=== PATIENT | male | born 1960 | race Caucasian/White ===

== ENCOUNTER 2021-09-03 12:50 | Observation (INO) | payer OTHER ==
[2021-09-03 14:00] LABS: Basophils % (A) 0 %; Eosinophils # (A) 0.2 k/uL (0-0.7); Eosinophils % (A) 2 %; HCT 45.3 % (39.0-53.0); HGB 14.9 gm/dL (13.0-17.5); Lymphocytes # (A) 2.2 k/uL (1.0-4.8); Lymphocytes % (A) 22 %; MCH 29.3 pg (25.0-35.0); MCHC 32.8 g/dL (31.0-37.0); MCV 89.5 fL (80.0-100.0); Monocytes # (A) 0.6 k/uL (0-1.0); Monocytes % (A) 6 %; Neutrophils # (A) 6.7 k/uL (1.3-7.7); Neutrophils % (A) 67 %; Platelet Count 239 k/uL (150-450); RBC 5.07 m/uL (4.30-5.90); RDW 14.9 % (11.5-15.5)
[2021-09-03 14:20] LABS: INR 0.9 (<1.2); Partial Thromboplastin Time 22.7 sec (22.0-30.0); Prothrombin Time 9.9 sec (9.0-12.0)
--- NOTE | 2021-09-03 14:21 | ED ---
GI Bleed HPI - General Chief complaint: GI Bleed Stated complaint: BLOOD IN STOOL Time Seen by Provider: 09/03/21 13:00 Source: patient Mode of arrival: ambulatory Limitations: no limitations - History of Present Illness Initial comments: 61-year-old male with past medical history of diabetes, hypertension presents to the emergency department with blood per rectum. States that it's been intermittently going on for 2 weeks. States that he fills the toilet bowl and visualizes it when he wipes. States that it is bright red in coloration. He had a colonoscopy in July which showed polyps however denies history of GI bleeding. He was started on naproxen for generalized aches and pains in july. He denies any abdominal pain or rectal pain. No history of colon cancer or inflammatory bowel disease. No other alleviating, precipitating or modifying factors - Related Data Home Medications Medication Instructions Recorded Confirmed amLODIPine BESYLATE/BENAZEPRIL 1 cap PO DAILY@39909/03/14 09/03/21 [Amlodipine-Benazepril 5-20 mg] Atorvastatin [Lipitor] 80 mg PO DAILY@39909/03/21 09/03/21 Cholecalciferol [Vitamin D3 (25 25 mcg PO DAILY@39909/03/21 09/03/21 Mcg = 1000 Iu)] Cyclobenzaprine [Flexeril] 10 mg PO BID PRN 09/03/21 09/03/21 Furosemide [Lasix] 40 mg PO DAILY@0800 09/03/21 09/03/21 Metoprolol Succinate [Toprol XL] 25 mg PO DAILY@39909/03/21 09/03/21 Naproxen [Naprosyn] 500 mg PO BID PRN 09/03/21 09/03/21 Potassium Chloride ER [K-Dur 10] 10 meq PO DAILY@39909/03/21 09/03/21 metFORMIN HCL ER [Glucophage XR] 500 mg PO DAILY@39909/03/21 09/03/21 Allergies Allergy/AdvReac Type Severity Reaction Status Date / Time iodine Allergy Rash/Hives Verified 09/03/21 14:20 Review of Systems ROS Statement: Those systems with pertinent positive or pertinent negative responses have been documented in the HPI. ROS Other: All systems not noted in ROS Statement are negative. Past Medical History Past Medical History: Hypertension Additional Past Medical History / Comment(s): kidney stones History of Any Multi-Drug Resistant Organisms: None Reported Additional Past Surgical History / Comment(s): colonoscopy Past Psychological History: No Psychological Hx Reported Smoking Status: Never smoker Past Alcohol Use History: None Reported Past Drug Use History: None Reported General Exam Limitations: no limitations Course Vital Signs 09/03/21 09/03/21 09/03/21 12:57 16:39 19:20 Temperature 97.7 F 97.8 F 98.2 F Pulse Rate 89 91 100 Respiratory 16 18 18 Rate Blood Pressure 173/97 156/97 169/104 O2 Sat by Pulse 97 97 98 Oximetry 09/03/21 21:00 Temperature Pulse Rate 95 Respiratory 18 Rate Blood Pressure 160/99 O2 Sat by Pulse 95 Oximetry Medical Decision Making - Medical Decision Making Upon arrival patient is placed in room 18. A thorough history and physical exam was performed. IV access established laboratory studies are conducted. Original hemoglobin is 14.9. Kidney function normal. Occult is positive. Patient does have melenic stools on rectal exam without identifiable mass. I did recommend admission in order to trend his hemoglobin. Patient agreed to this. We will hold his Naprosyn. Patient admitted to Dr. Mason. Dr. Benjamin will be placed on consult. Patient awaiting a bed on the floor in stable condition - Lab Data Result diagrams: 09/03/21 16:48 09/03/21 13:35 Lab Results 09/03/21 09/03/21 09/03/21 Range/Units 13:35 13:35 13:35 WBC 10.0 (3.8-10.6) k/uL RBC 5.07 (4.30-5.90) m/uL Hgb 14.9 (13.0-17.5) gm/dL Hct 45.3 (39.0-53.0) % MCV 89.5 (80.0-100.0) fL MCH 29.3 (25.0-35.0) pg MCHC 32.8 (31.0-37.0) g/dL RDW 14.9 (11.5-15.5) % Plt Count 239 (150-450) k/uL MPV 7.0 Neutrophils % 67 % Lymphocytes % 22 % Monocytes % 6 % Eosinophils % 2 % Basophils % 0 % Neutrophils # 6.7 (1.3-7.7) k/uL Lymphocytes # 2.2 (1.0-4.8) k/uL Monocytes # 0.6 (0-1.0) k/uL Eosinophils # 0.2 (0-0.7) k/uL Basophils # 0.0 (0-0.2) k/uL PT 9.9 (9.0-12.0) sec INR 0.9 (<1.2) APTT 22.7 (22.0-30.0) sec Sodium 138 (137-145) mmol/L Potassium 4.2 (3.5-5.1) mmol/L Chloride 107 (98-107) mmol/L Carbon Dioxide 25 (22-30) mmol/L Anion Gap 6 mmol/L BUN 17 (9-20) mg/dL Creatinine 0.90 (0.66-1.25) mg/dL Est GFR (CKD-EPI)AfAm >90 (>60 ml/min/1.73 sqM) Est GFR (CKD-EPI)NonAf >90 (>60 ml/min/1.73 sqM) Glucose 154 H (74-99) mg/dL Plasma Lactic Acid Zach (0.7-2.0) mmol/L Calcium 9.3 (8.4-10.2) mg/dL Magnesium 1.9 (1.6-2.3) mg/dL Total Bilirubin 0.6 (0.2-1.3) mg/dL AST 30 (17-59) U/L ALT 34 (4-49) U/L Alkaline Phosphatase 131 H (38-126) U/L Troponin I (0.000-0.034) ng/mL Total Protein 7.9 (6.3-8.2) g/dL Albumin 4.3 (3.5-5.0) g/dL Lipase 176 (23-300) U/L Stool Occult Blood (Negative) Blood Type Blood Type Recheck Bld Type Recheck Status Antibody Screen Spec Expiration Date 09/03/21 09/03/21 09/03/21 Range/Units 13:35 13:35 13:35 WBC (3.8-10.6) k/uL RBC (4.30-5.90) m/uL Hgb (13.0-17.5) gm/dL Hct (39.0-53.0) % MCV (80.0-100.0) fL MCH (25.0-35.0) pg MCHC (31.0-37.0) g/dL RDW (11.5-15.5) % Plt Count (150-450) k/uL MPV Neutrophils % % Lymphocytes % % Monocytes % % Eosinophils % % Basophils % % Neutrophils # (1.3-7.7) k/uL Lymphocytes # (1.0-4.8) k/uL Monocytes # (0-1.0) k/uL Eosinophils # (0-0.7) k/uL Basophils # (0-0.2) k/uL PT (9.0-12.0) sec INR (<1.2) APTT (22.0-30.0) sec Sodium (137-145) mmol/L Potassium (3.5-5.1) mmol/L Chloride (98-107) mmol/L Carbon Dioxide (22-30) mmol/L Anion Gap mmol/L BUN (9-20) mg/dL Creatinine (0.66-1.25) mg/dL Est GFR (CKD-EPI)AfAm (>60 ml/min/1.73 sqM) Est GFR (CKD-EPI)NonAf (>60 ml/min/1.73 sqM) Glucose (74-99) mg/dL Plasma Lactic Acid Zach 1.9 (0.7-2.0) mmol/L Calcium (8.4-10.2) mg/dL Magnesium (1.6-2.3) mg/dL Total Bilirubin (0.2-1.3) mg/dL AST (17-59) U/L ALT (4-49) U/L Alkaline Phosphatase (38-126) U/L Troponin I <0.012 (0.000-0.034) ng/mL Total Protein (6.3-8.2) g/dL Albumin (3.5-5.0) g/dL Lipase (23-300) U/L Stool Occult Blood Positive (Negative) Blood Type Blood Type Recheck Bld Type Recheck Status Antibody Screen Spec Expiration Date 09/03/21 Range/Units 13:35 WBC (3.8-10.6) k/uL RBC (4.30-5.90) m/uL Hgb (13.0-17.5) gm/dL Hct (39.0-53.0) % MCV (80.0-100.0) fL MCH (25.0-35.0) pg MCHC (31.0-37.0) g/dL RDW (11.5-15.5) % Plt Count (150-450) k/uL MPV Neutrophils % % Lymphocytes % % Monocytes % % Eosinophils % % Basophils % % Neutrophils # (1.3-7.7) k/uL Lymphocytes # (1.0-4.8) k/uL Monocytes # (0-1.0) k/uL Eosinophils # (0-0.7) k/uL Basophils # (0-0.2) k/uL PT (9.0-12.0) sec INR (<1.2) APTT (22.0-30.0) sec Sodium (137-145) mmol/L Potassium (3.5-5.1) mmol/L Chloride (98-107) mmol/L Carbon Dioxide (22-30) mmol/L Anion Gap mmol/L BUN (9-20) mg/dL Creatinine (0.66-1.25) mg/dL Est GFR (CKD-EPI)AfAm (>60 ml/min/1.73 sqM) Est GFR (CKD-EPI)NonAf (>60 ml/min/1.73 sqM) Glucose (74-99) mg/dL Plasma Lactic Acid Zach (0.7-2.0) mmol/L Calcium (8.4-10.2) mg/dL Magnesium (1.6-2.3) mg/dL Total Bilirubin (0.2-1.3) mg/dL AST (17-59) U/L ALT (4-49) U/L Alkaline Phosphatase (38-126) U/L Troponin I (0.000-0.034) ng/mL Total Protein (6.3-8.2) g/dL Albumin (3.5-5.0) g/dL Lipase (23-300) U/L Stool Occult Blood (Negative) Blood Type O Positive Blood Type Recheck No Previous Record Bld Type Recheck Status CABO Indicated Antibody Screen NEGATIVE Spec Expiration Date 09/06/20212334 Disposition Clinical Impression: Melena Disposition: ADMITTED IP TO THIS HOSP Condition: Stable Is patient prescribed a controlled substance at d/c from ED?: No Decision to Admit Reason: Admit from EC Decision Date: 09/03/21 Decision Time: 15:22
[2021-09-03 14:26] LABS: ALT 34 U/L (4-49); AST 30 U/L (17-59); African American GFR (CKD) >90 (>60 ml/min/1.73 sqM); Albumin 4.3 g/dL (3.5-5.0); Alkaline Phosphatase 131 U/L (38-126); Anion Gap 6 mmol/L; Blood Urea Nitrogen 17 mg/dL (9-20); Calcium 9.3 mg/dL (8.4-10.2); Carbon Dioxide 25 mmol/L (22-30); Chloride 107 mmol/L (98-107); Glucose 154 mg/dL (74-99); Lipase 176 U/L (23-300); Magnesium 1.9 mg/dL (1.6-2.3); Non-African American GFR(CKD) >90 (>60 ml/min/1.73 sqM); Potassium 4.2 mmol/L (3.5-5.1); Sodium 138 mmol/L (137-145); Total Bilirubin 0.6 mg/dL (0.2-1.3); Total Protein 7.9 g/dL (6.3-8.2)
[2021-09-03] MEDS ORDERED: NALOXONE 0.4 MG/ML 1 ML VIAL IV PRN (15:22)
[2021-09-03] MEDS: SODIUM CHLORIDE 0.9% 1,000 ML IV SCH (16:45)
[2021-09-03 17:13] LABS: HCT 41.9 % (39.0-53.0); HGB 13.9 gm/dL (13.0-17.5); MCH 29.4 pg (25.0-35.0); MCHC 33.1 g/dL (31.0-37.0); MCV 88.9 fL (80.0-100.0); Mean Platelet Volume 7.3; Platelet Count 212 k/uL (150-450); RBC 4.72 m/uL (4.30-5.90); RDW 14.6 % (11.5-15.5); WBC 10.4 k/uL (3.8-10.6)
[2021-09-03] MEDS ORDERED: PANTOPRAZOLE 40 MG/10 ML VIAL IVP STA (18:12)
[2021-09-03] MEDS ORDERED: CYCLOBENZAPRINE 10 MG TAB PO PRN (18:12)
--- NOTE | 2021-09-03 21:57 | P.HPIM ---
History of Present Illness H&P Date: 09/03/21 Chief Complaint: Dark-colored stools Patient is a 61-year-old male with a known history of hypertension and heart murmur, supposed to get 2D echocardiogram at [facility] presents to ER with complaints of dark-colored stools for the past 2 weeks. Patient states sometimes it is bright red in color. Patient did have colonoscopy at the [facility] which showed polyps but no active bleeding. Denies any history of prior GI bleeding. Patient has been taking Naprosyn on and off since July for generalized body aches and pains. Otherwise patient denies any complaints of abdominal pain. Denies any dysuria or hematuria. No cough or sputum production. No fever no chills. Patient is also having increasing leg swelling recently and was started on Lasix by his physician at [facility].. Denied any complaints of palpitations. No chest pain or shortness of breath. Laboratory data showed WBC 10.0 hemoglobin 14.9 and platelets 239 Sodium 138 potassium 4.2 chloride 107 BUN 17 and creatinine 0.90 Blood sugar is 154 AST 30 ALT 34 alk phos 131 troponin 0 0.012 and FOBT positi ve. Coronavirus PCR not detected. Review of Systems Constitutional: Patient denies any fever or chills . Does have generalized weakness or weight gain. Abdomen: Patient denied nausea vomiting and diarrhea and abdominal pain. Patient does have dark stools. Cardiovascular: Patient denies any chest pain or short of breath no palpitations. Leg swelling. Respiratory: patient denied any cough or sputum production. No shortness of breath Neurologic: Patient denied any numbness or tingling headache. Musculoskeletal: Patient denies any complaints of joint swelling or deformity. Skin: Negative Psychiatric: Negative Endocrine: No heat or cold intolerance. No recent weight gain. Genitourinary: No dysuria or hematuria. All other 14 point ROS negative except the above Past Medical History Past Medical History: Hypertension Additional Past Medical History / Comment(s): kidney stones History of Any Multi-Drug Resistant Organisms: None Reported Additional Past Surgical History / Comment(s): colonoscopy Past Psychological History: No Psychological Hx Reported Smoking Status: Never smoker Past Alcohol Use History: None Reported Past Drug Use History: None Reported Medications and Allergies Home Medications Medication Instructions Recorded Confirmed Type amLODIPine BESYLATE/BENAZEPRIL 1 cap PO DAILY@0400 09/03/14 09/03/21 History [Amlodipine-Benazepril 5-20 mg] Atorvastatin [Lipitor] 80 mg PO DAILY@0 09/03/21 09/03/21 History Cholecalciferol [Vitamin D3 (25 25 mcg PO DAILY@39909/03/21 09/03/21 History Mcg = 1000 Iu)] Cyclobenzaprine [Flexeril] 10 mg PO BID PRN 09/03/21 09/03/21 History Furosemide [Lasix] 40 mg PO DAILY@0800 09/03/21 09/03/21 History Metoprolol Succinate [Toprol XL] 25 mg PO DAILY@39909/03/21 09/03/21 History Naproxen [Naprosyn] 500 mg PO BID PRN 09/03/21 09/03/21 History Potassium Chloride ER [K-Dur 10] 10 meq PO DAILY@39909/03/21 09/03/21 History metFORMIN HCL ER [Glucophage XR] 500 mg PO DAILY@39909/03/21 09/03/21 History Allergies Allergy/AdvReac Type Severity Reaction Status Date / Time iodine Allergy Rash/Hives Verified 09/03/21 14:20 Physical Exam Vitals: Vital Signs Temp Pulse Resp BP Pulse Ox 09/03/21 21:00 95 18 160/99 95 09/03/21 19:20 98.2 F 100 18 169/104 98 09/03/21 16:39 97.8 F 91 18 156/97 97 09/03/21 12:57 97.7 F 89 16 173/97 97 Intake and Output 09/03/21 09/03/21 09/03/21 06:59 14:59 22:59 Other: Weight 137.438 kg PHYSICAL EXAMINATION: Patient is lying in the bed comfortably, no acute distress, awake alert and oriented.. Morbidly obese. HEENT: Normocephalic. Neck is supple. Pupils reactive. Nostrils clear. Oral cavity is moist. Neck reveals no JVD, carotid bruits, or thyromegaly. CHEST EXAMINATION: Trachea is central. Symmetrical expansion. Bibasilar diminished sounds. No wheezing or rhonchi. No crackles noted.. CARDIAC: Normal S1, S2 with no gallops. No murmurs ABDOMEN: Soft. bowel sounds normal. No organomegaly. No abdominal bruits. Extremities: 2+ pedal bilateral edema. No clubbing or cyanosis Neurologically awake, alert, oriented x3 with well-coordinated movements. No focal deficits noted Skin: No rash or skin lesions. Psychiatric: Cooperative. Nonsuicidal Musculoskeletal: No joint swelling or deformity. Normal range of motion. Results CBC & Chem 7: 09/03/21 16:48 09/03/21 13:35 Labs: Abnormal Lab Results - Last 24 Hours (Table) 09/03/21 Range/Units 13:35 Glucose 154 H (74-99) mg/dL Alkaline Phosphatase 131 H (38-126) U/L Thrombosis Risk Factor Assmnt - DVT/VTE Prophylaxis DVT/VTE Prophylaxis: Pharmacologic Prophylaxis ordered Assessment and Plan Assessment: Melanotic stools due to GI bleed possible upper. Patient did have colonoscopy [facility] in July 2021 showed polyps as per patient. Mild acute blood loss anemia Heart murmur patient is scheduled to get 2D echocardiogram Bilateral lower extremity edema Hypertension uncontrolled Morbid obesity BMI 43.5 DVT prophylaxis with SCDs. Plan: Patient will be continued on Protonix IV and gentle IV hydration. Monitor hemoglobin. Gastroenterology service was consulted for further evaluation. Monitor for fluid overload. Ordered BNP level. Continue to follow closely. Time with Patient: Greater than 30
--- NOTE | 2021-09-03 22:51 | XR ---
EXAMINATION TYPE: XR chest 1V DATE OF EXAM: 09/03/2021 COMPARISON: NONE HISTORY: Short of breath TECHNIQUE: Lateral view FINDINGS: There is no heart failure no confluent pneumonic infiltrate. There is old right-sided multi ple healed rib fractures. There is no pleural effusion. There are no hilar masses. There are chest le ads. IMPRESSION: No active cardiopulmonary disease.
[2021-09-04] MEDS: POTASSIUM CHLORIDE ER 10 MEQ TAB.ER.PRT PO SCH (05:19)
[2021-09-04] MEDS: amLODIPine 5 MG TAB PO SCH (05:19)
[2021-09-04] MEDS: ATORVASTATIN 80 MG TAB PO SCH (05:19)
[2021-09-04] MEDS: CHOLECALCIFEROL 25 MCG (1000 IU) TABLET PO SCH (05:19)
[2021-09-04] MEDS: METOPROLOL SUCCINATE (ER) 25 MG TAB.ER.24H PO SCH (05:19)
[2021-09-04] MEDS: lisinopriL 20 MG TAB PO SCH (05:20)
[2021-09-04] MEDS: FUROSEMIDE 40 MG TAB PO SCH (08:32)
[2021-09-04] MEDS: metFORMIN 500 MG TAB PO SCH ×2 (08:33→20:23)
[2021-09-04 08:39] LABS: Glucose,Whole Blood 157 mg/dL (75-99)
[2021-09-04] MEDS: PANTOPRAZOLE 40 MG/10 ML VIAL IVP SCH ×2 (09:13→20:23)
[2021-09-04] MEDS: SODIUM CHLORIDE 0.9% 1,000 ML IV SCH ×2 (09:15→16:28)
[2021-09-04 11:37] LABS: Basophils # (A) 0.04 X 10*3/uL (0.00-0.10); Basophils % (A) 0.4 %; Eosinophils # (A) 0.23 X 10*3/uL (0.04-0.35); Eosinophils % (A) 2.5 %; HCT 43.1 % (39.6-50.0); HGB 13.8 g/dL (13.0-17.0); Lymphocytes # (A) 2.27 X 10*3/uL (0.90-5.00); Lymphocytes % (A) 24.4 %; MCH 28.8 pg (27.0-32.0); MCV 89.8 fL (80.0-97.0); Mean Platelet Volume 9.8 fL (9.5-12.2); Monocytes # (A) 0.84 X 10*3/uL (0.20-1.00); Neutrophils # (A) 5.86 X 10*3/uL (1.80-7.70); Neutrophils % (A) 63.2 %; Platelet Count 220 X 10*3/uL (140-440); RDW 15.1 % (11.5-14.5); WBC 9.29 X 10*3/uL (4.50-10.00)
[2021-09-04 11:48] LABS: Anion Gap 11.3 mmol/L (10.00-18.00); BUN/Creat Ratio 16.78 Ratio (12.00-20.00); Blood Urea Nitrogen 15.1 mg/dL (9.0-27.0); Calcium 8.8 mg/dL (8.7-10.3); Carbon Dioxide 22.7 mmol/L (20.0-27.5); Non-African American GFR(CKD) 90.6 (60.0-200.0); Potassium 4.2 mmol/L (3.5-5.5)
--- NOTE | 2021-09-04 12:01 | ECHOF ---
Referral Reason:CHF MEASUREMENTS -------- HEIGHT: 177.8 cm WEIGHT: 137.4 kg BP: 135/79 RVIDd: 3.2 cm (< 3.3) IVSd: 1.5 cm (0.6 - 1.1) LVIDd: 6.6 cm (3.9 - 5.3) LVPWd: 1.6 cm (0.6 - 1.1) IVSs: 1.9 cm LVIDs: 4.1 cm LVPWs: 1.7 cm LAESV Index (A-L): 24.70 ml/m Ao Diam: 3.5 cm (2.0 - 3.7) AV Cusp: 1.5 cm (1.5 - 2.6) MV E Dedrick: 0.75 m/s MV DecT: 152 ms MV A Dedrick: 0.95 m/s MV E/A Ratio: 0.79 AV maxP.08 mmHg AV meanP.26 mmHg RAP: 5.00 mmHg RVSP: 48.35 mmHg FINDINGS -------- Sinus rhythm. This was a technically adequate study. The left ventricular size is normal. There is moderate concentric left ventricular hypertrophy. O verall left ventricular systolic function is normal with, an EF between 55 - 60 %. The diastolic fi lling pattern is normal for the age of the patient 12.76. The right ventricle is normal in size. Normal LA size by volume 22+/-6 ml/m2. The right atrial size is normal. Interatrial and interventricular septum intact. There is no evidence of aortic regurgitation. There is mild aortic stenosis present. The maximum velocity across the aortic valve is 2.69m/s. Peak/mean gradient across the Aortic Valve is 29.08mmH g / 18.26mmHg. No mitral regurgitation. Mild tricuspid regurgitation present. There is mild pulmonary hypertension. The right ventricular systolic pressure, as measured by Doppler, is 48.35mmHg. There is no pulmonic regurgitation present. The aortic root size is normal. IVC Not well visulized. There is no pericardial effusion. CONCLUSIONS -------- 1. This was a technically adequate study. 2. The left ventricular size is normal. 3. There is moderate concentric left ventricular hypertrophy. 4. Overall left ventricular systolic function is normal with, an EF between 55 - 60 %. 5. There is mild aortic stenosis present. 6. The maximum velocity across the aortic valve is 2.69m/s. 7. Peak/mean gradient across the Aortic Valve is 29.08mmHg / 18.26mmHg. 8. Mild tricuspid regurgitation present. 9. There is mild pulmonary hypertension. 10. The right ventricular systolic pressure, as measured by Doppler, is 48.35mmHg. BANKING MANAGER: Marisabel Maldonado RDCS
[2021-09-04 12:12] LABS: Glucose,Whole Blood 144 mg/dL (75-99)
[2021-09-04] MEDS: NICOTINE 21MG/24HR PATCH TRANSDERM SCH (13:12)
--- NOTE | 2021-09-04 16:31 | P.CONS ---
History of Present Illness - Reason for Consult Consult date: 09/04/21 Acute GI bleed Requesting physician: Aspen Hinton - Chief Complaint melena - History of Present Illness 61-year-old male who presented to the emergency department with complaints of bright red and dark red blood in his stool over the last 2 weeks duration. Patient did undergo a colonoscopy in July 2021 through the [facility] and states he had 2 polyps removed at that time. He also has a history of arthritis and has been on Naprosyn for greater than one year's duration as well as a low-dose aspirin daily. He denies any straining with his bowel movement, states bowels movements are regular and soft however mixed with bright red and maroon colored blood. Denies any abdominal pain, nausea, or vomiting. Did have positive stool occult blood, hemoglobin is stable at 13.8. No previous history of GI bleed. He does state he has a family history of colon cancer his paternal father and grandfather. He denies any previous history of peptic ulcer disease, no previous EGD. Review of Systems REVIEW OF SYSTEMS: CARDIOPULMONARY: No chest pain or shortness of breath. Gastrointestinal: No abdominal pain. No nausea or vomiting. No hematemesis, coffee-ground emesis. Rectal bleeding and melena. GENITOURINARY: No dysuria or hematuria. MUSCULOSKELETAL: Reports normal range of motion., Joint pain. SKIN: No rashes. No jaundice. ENDOCRINE: No chills, fevers. No excessive weight gain or loss. No polydipsia or polyuria. PSYCHIATRIC: Unremarkable. NEUROLOGY: No change in mental status. Denies dizziness, headache. ENT: Vision unremarkable. CONSTITUTIONAL: No recent weight loss. No fever, chills, night sweats. Past Medical History Past Medical History: Hypertension Additional Past Medical History / Comment(s): kidney stones History of Any Multi-Drug Resistant Organisms: None Reported Additional Past Surgical History / Comment(s): colonoscopy Past Anesthesia/Blood Transfusion Reactions: No Reported Reaction Past Psychological History: No Psychological Hx Reported Smoking Status: Current every day smoker Past Alcohol Use History: None Reported Past Drug Use History: None Reported Medications and Allergies Home Medications Medication Instructions Recorded Confirmed Type amLODIPine BESYLATE/BENAZEPRIL 1 cap PO DAILY@0400 09/03/14 09/03/21 History [Amlodipine-Benazepril 5-20 mg] Atorvastatin [Lipitor] 80 mg PO DAILY@0400 09/03/21 09/03/21 History Cholecalciferol [Vitamin D3 (25 25 mcg PO DAILY@0400 09/03/21 09/03/21 History Mcg = 1000 Iu)] Cyclobenzaprine [Flexeril] 10 mg PO BID PRN 09/03/21 09/03/21 History Furosemide [Lasix] 40 mg PO DAILY@0800 09/03/21 09/03/21 History Metoprolol Succinate [Toprol XL] 25 mg PO DAILY@0400 09/03/21 09/03/21 History Naproxen [Naprosyn] 500 mg PO BID PRN 09/03/21 09/03/21 History Potassium Chloride ER [K-Dur 10] 10 meq PO DAILY@0 09/03/21 09/03/21 History metFORMIN HCL ER [Glucophage XR] 500 mg PO DAILY@39909/03/21 09/03/21 History Allergies Allergy/AdvReac Type Severity Reaction Status Date / Time iodine Allergy Rash/Hives Verified 09/03/21 14:20 Physical Exam Vitals: Vital Signs Temp Pulse Pulse Resp BP BP BP 09/04/21 07:00 97.8 F 93 16 135/79 09/04/21 02:36 97.7 F 100 15 146/92 09/04/21 02:10 98 16 09/03/21 22:19 98.0 F 98 16 130/85 09/03/21 21:00 95 18 160/99 09/03/21 19:20 98.2 F 100 18 169/104 09/03/21 16:39 97.8 F 91 18 156/97 09/03/21 12:57 97.7 F 89 16 173/97 Pulse Ox 09/04/21 07:00 97 09/04/21 02:36 95 09/04/21 02:10 09/03/21 22:19 98 09/03/21 21:00 95 09/03/21 19:20 98 09/03/21 16:39 97 09/03/21 12:57 97 Intake and Output 09/03/21 09/04/21 09/04/21 22:59 06:59 14:59 Other: Voiding Method Toilet # Voids 1 2 Weight 137.438 kg General appearance: The patient is alert, oriented, appears in no acute distress. HET: Head is normocephalic and atraumatic. Conjunctiva pink. Sclera anicteric. Neck: Supple without lymphadenopathy. Trachea midline. Heart: S1 S2. Regular rate and rhythm. Lungs: Clear to auscultation. Abdomen: Soft, obese, nontender, nondistended with bowel sounds. No guarding or rigidity. Skin: No rashes. No jaundice. Extremities: Normal skin color and turgor. No pedal edema. Neurological: No focal deficits. Alert and oriented x3. Results CBC & Chem 7: 09/04/21 06:42 09/04/21 06:42 Labs: Abnormal Lab Results - Last 24 Hours (Table) 09/03/21 09/04/21 Range/Units 13:35 08:37 Glucose 154 H (74-99) mg/dL POC Glucose (mg/dL) 157 H (75-99) mg/dL Alkaline Phosphatase 131 H (38-126) U/L Assessment and Plan (1) Melena Narrative/Plan: History 1-year-old male who presented to the emergency department with complaints of bright red blood and maroon colored blood in his stool. States have been going on for the last 1-2 weeks duration. He recently underwent a colonoscopy in July 2021 at the [facility] for which he states he had 2 polyps removed that came back benign. He has no previous history of GI bleed. No previous history of peptic ulcer disease per EGD. He does take Naprosyn daily for joint pain as well as low-dose baby aspirin for coronary artery disease. He did have a possible occult stool. Globin stable at 13.8. No further bowel movement since yesterday. Discussed with patient recommendation for upper and lower endoscopy however patient is refusing to do colonoscopy. Patient is agreeable to do an upper endoscopy. Possible etiologies include AVM, peptic ulcer disease, esophagitis, gastritis, or other possible etiologies. Cannot rule out lower GI source of bleeding without colonoscopy however patient again is declining at this time. Current Visit: Yes Status: Acute Code(s): K92.1 - MELENA SNOMED Code(s): 1939766 Plan: 1. Continue symptomatic and supportive care 2. Clear liquid diet, nothing by mouth after midnight 3. Avoid NSAIDs 4. Recommended upper and lower endoscopy, however patient declining lower endoscopy. We'll proceed with EGD tomorrow. Procedure discussed with patient including risks and benefits. Patient is willing to proceed. Thank you for this consultation, we will continue to follow. Dr. Alannah Benjamin I agree with the dictator's note, documented as a scribe by Ramya Estrada.
[2021-09-04 17:34] LABS: Glucose,Whole Blood 128 mg/dL (75-99)
[2021-09-04 20:43] LABS: Glucose,Whole Blood 160 mg/dL (75-99)
[2021-09-05 02:29] VITALS: PULSE 89
[2021-09-05] MEDS: CHOLECALCIFEROL 25 MCG (1000 IU) TABLET PO SCH (03:57)
[2021-09-05] MEDS: lisinopriL 20 MG TAB PO SCH (03:57)
[2021-09-05] MEDS: amLODIPine 5 MG TAB PO SCH (03:57)
[2021-09-05] MEDS: METOPROLOL SUCCINATE (ER) 25 MG TAB.ER.24H PO SCH (03:57)
[2021-09-05] MEDS: POTASSIUM CHLORIDE ER 10 MEQ TAB.ER.PRT PO SCH (03:57)
[2021-09-05] MEDS: ATORVASTATIN 80 MG TAB PO SCH (03:57)
[2021-09-05 06:19] LABS: HCT 48.1 % (39.0-53.0); HGB 15.7 gm/dL (13.0-17.5); MCH 29.8 pg (25.0-35.0); MCHC 32.6 g/dL (31.0-37.0); MCV 91.5 fL (80.0-100.0); Mean Platelet Volume 7.1; Platelet Count 250 k/uL (150-450); RBC 5.26 m/uL (4.30-5.90); RDW 14.6 % (11.5-15.5); WBC 10.7 k/uL (3.8-10.6)
[2021-09-05] MEDS ORDERED: LACTATED RINGERS 1,000 ML IV SCH (06:48)
[2021-09-05 07:07] LABS: Glucose,Whole Blood 149 mg/dL (75-99)
[2021-09-05 07:59] VITALS: BP 111/83; RESP 16; TEMP 98.1
[2021-09-05] MEDS ORDERED: IV FLUID CONTINUATION 400 ML IV ONE (08:00)
[2021-09-05] MEDS ORDERED: LIDOCAINE 1% INJ 10MG/ML (20 ML MDV) ONE (08:00)
[2021-09-05] MEDS ORDERED: PROPOFOL 10 MG/ML 20 ML VIAL IV ONE (08:00)
--- NOTE | 2021-09-05 08:12 | P.PCN ---
Date of Procedure: 09/05/21 Procedure(s) Performed: BRIEF HISTORY: Patient is a 61-year-old, pleasant, male admitted hospital with acute GI bleed. He had 3 episodes of maroon-colored stools and hemoglobin has been stable. He had a colonoscopy at the [facility] in [place] in July 2071 and was noted to have 2 small polyps. He has been taking naproxen for arthritis and because of acute GI bleed he scheduled for an upper endoscopy with possible upper GI source of bleeding. PROCEDURE PERFORMED: Esophagogastroduodenoscopy with biopsy. PREOPERATIVE DIAGNOSIS: Acute GI bleed 1 day duration. IV sedation per anesthesia. PROCEDURE: After informed consent was obtained, the patient was brought into the endoscopy unit. IV sedation was administered by Anesthesia under continuous monitoring. Initially the Olympus GIF-140 video endoscope was inserted into the mouth. Esophagus intubated without any difficulty. It was gradually advanced into the stomach and duodenum and carefully examined. The bulb had mild erosive duodenitis and the second part of the duodenum appeared normal. The scope at this time was withdrawn to the stomach, adequately insufflated with air, and upon careful examination, mucosa of the antrum had mild gastritis and biopsies were done from this area. There were small polyps noted in the body the stomach which were biopsied. Rest of the, body, cardia and the fundus appeared normal. The scope was then withdrawn into the esophagus. The GE junction was located at 45 cm from the incisors. The esophagus appeared normal. There were no erosions or ulcerations seen and the patient tolerated the procedure well. IMPRESSION: 1. Mild duodenitis. 2. Mild antral gastritis and small gastric polyps status post biopsy. 3. No evidence of acute upper GI bleed RECOMMENDATIONS: The findings of this examination were discussed with the patient. He was advised to follow with the biopsy results. Advance diet as tolerated. He'll be sent home today since patient has no further active bleeding noted..
[2021-09-05] MEDS: NICOTINE 21MG/24HR PATCH TRANSDERM SCH (08:32)
[2021-09-05] MEDS: metFORMIN 500 MG TAB PO SCH (08:32)
[2021-09-05] MEDS: PANTOPRAZOLE 40 MG/10 ML VIAL IVP SCH (08:32)
[2021-09-05] MEDS: SODIUM CHLORIDE 0.9% 1,000 ML IV SCH (08:32)
[2021-09-05] MEDS: FUROSEMIDE 40 MG TAB PO SCH (08:32)
[2021-09-05 12:03] LABS: Glucose,Whole Blood 220 mg/dL (75-99)
== END 2021-09-05 12:26 | disposition home or self-care (01) ==
LOC: EC 12:50 → 6NMEDSUR 15:22
PROVIDERS: ADMIT Internal Medicine; ATTEND Internal Medicine
DX: K92.1 Melena (principal); D62 Acute posthemorrhagic anemia; K31.7 Polyp of stomach and duodenum; K29.50 Unspecified chronic gastritis without bleeding; K29.80 Duodenitis without bleeding; R01.1 Cardiac murmur, unspecified; I25.10 Atherosclerotic heart disease of native coronary artery without angina pectoris; I27.20 Pulmonary hypertension, unspecified; I08.2 Rheumatic disorders of both aortic and tricuspid valves; I11.9 Hypertensive heart disease without heart failure; E11.9 Type 2 diabetes mellitus without complications; R60.0 Localized edema; M19.90 Unspecified osteoarthritis, unspecified site; E66.01 Morbid (severe) obesity due to excess calories; Z68.41 Body mass index [BMI] 40.0-44.9, adult; Z20.822 Contact with and (suspected) exposure to COVID-19; Z79.84 Long term (current) use of oral hypoglycemic drugs; Z79.899 Other long term (current) drug therapy; Z91.048 Other nonmedicinal substance allergy status; Z87.442 Personal history of urinary calculi; Z86.010 Personal history of colon polyps; Z98.890 Other specified postprocedural states; Z79.82 Long term (current) use of aspirin; Z80.0 Family history of malignant neoplasm of digestive organs
CPT/HCPCS: 96376; 96361; 96374; 99285; 36415; 93306; 86900; 86901; 88305; 83880; 80053; 80048; 83605; 83690; 83735; 84484; 85025 ×2; 85027 ×2; 85610; 85730; 86850; 82272; 87635; 71045; 43239; G0378 ×3; S4990; J2001; J2704; C9113 ×3

== ENCOUNTER 2022-12-11 19:06 | Inpatient (IN) | payer OTHER ==
[2022-12-11] MEDS ORDERED: VANCOMYCIN IV PER PHARMACY 1 EACH MISC MISCELLANE PRN (19:45)
[2022-12-11] MEDS ORDERED: IBUPROFEN 600 MG TAB PO STA (19:45)
[2022-12-11] MEDS ORDERED: ACETAMINOPHEN TAB 500 MG TAB PO STA (19:45)
[2022-12-11] MEDS ORDERED: CLINDAMYCIN 600 MG in DEXTROSE 5% IN WATER 50 ML IVPB STA ×2 (19:47)
--- NOTE | 2022-12-11 19:51 | ED ---
General Adult HPI - General Chief complaint: Skin/Abscess/Foreign Body Stated complaint: Left Leg Poss Infection Time Seen by Provider: 12/11/22 19:30 Source: patient, RN notes reviewed, old records reviewed Mode of arrival: wheelchair Limitations: no limitations - History of Present Illness Initial comments: This is a 62-year-old male who presents emergency Department complaining that he has redness swelling and pain to the medial aspect of his right leg just medial to the knee. Patient states that the surgical site from when they did bypass surgery. Patient states surgeries back and last February. Patient states he has had a fever and has been feeling sick over the last couple of days. Patient denies any dysuria hematuria urinary frequency. Patient has any cough shortness of breath or difficulty breathing. - Related Data Home Medications Medication Instructions Recorded Confirmed amLODIPine BESYLATE/BENAZEPRIL 1 cap PO DAILY@39909/03/14 09/03/21 [Amlodipine-Benazepril 5-20 mg] Atorvastatin [Lipitor] 80 mg PO DAILY@39909/03/21 09/03/21 Cholecalciferol [Vitamin D3 (25 25 mcg PO DAILY@39909/03/21 09/03/21 Mcg = 1000 Iu)] Cyclobenzaprine [Flexeril] 10 mg PO BID PRN 09/03/21 09/03/21 Furosemide [Lasix] 40 mg PO DAILY@0800 09/03/21 09/03/21 Metoprolol Succinate [Toprol XL] 25 mg PO DAILY@39909/03/21 09/03/21 Potassium Chloride ER [K-Dur 10] 10 meq PO DAILY@39909/03/21 09/03/21 metFORMIN HCL ER [Glucophage XR] 500 mg PO DAILY@39909/03/21 09/03/21 Previous Rx's Medication Instructions Recorded Pantoprazole [Protonix] 40 mg PO AC-BRKFST #28 tab 09/05/21 Allergies Allergy/AdvReac Type Severity Reaction Status Date / Time iodine Allergy Rash/Hives Verified 12/11/22 19:30 Review of Systems ROS Statement: Those systems with pertinent positive or pertinent negative responses have been documented in the HPI. ROS Other: All systems not noted in ROS Statement are negative. Past Medical History Past Medical History: Hypertension Additional Past Medical History / Comment(s): kidney stones History of Any Multi-Drug Resistant Organisms: None Reported Additional Past Surgical History / Comment(s): colonoscopy Past Anesthesia/Blood Transfusion Reactions: No Reported Reaction Past Psychological History: No Psychological Hx Reported Smoking Status: Never smoker Past Alcohol Use History: None Reported Past Drug Use History: None Reported General Exam - General Exam Comments Initial Comments: GENERAL: Patient is well-developed and well-nourished. Patient is nontoxic and well- hydrated and is in mild distress. ENT: Neck is soft and supple. No significant lymphadenopathy is noted. Oropharynx is clear. Moist mucous membranes. Neck has full range of motion without eliciting any pain. EYES: The sclera were anicteric and conjunctiva were pink and moist. Extraocular movements were intact and pupils were equal round and reactive to light. Eyelids were unremarkable. SKIN: Skin is clear with no lesions or rashes and otherwise unremarkable. NEUROLOGIC: Patient is alert and oriented x3. Cranial nerves II through XII are grossly intact. Motor and sensory are also intact. Normal speech, volume and content. Symmetrical smile. MUSCULOSKELETAL: Normal extremities with adequate strength and full range of motion. Patient has what appears to be an abscess to the medial aspect of the left leg just medial to the knee. There is very red tender swollen and warm. LYMPHATICS: No significant lymphadenopathy is noted PSYCHIATRIC: Normal psychiatric evaluation. Limitations: no limitations Course Vital Signs 12/11/22 19:30 Temperature 101.7 F H Pulse Rate 108 H Respiratory 18 Rate Blood Pressure 141/82 O2 Sat by Pulse 98 Oximetry Medical Decision Making - Medical Decision Making EKG was interpreted by myself shows a sinus tachycardia at 107 bpm NH interval 283 QRS is 91 QT interval 336 QTC is 399. Patient's EKG shows no ST segment elevation or depression. Was pt. sent in by a medical professional or institution (, PA, SALVAGE DETERMINER, urgent care, hospital, or [facility]...) When possible be specific @ -[No] Did you speak to anyone other than the patient for history (EMS, parent, family, police, friend...)? What history was obtained from this source @ -[No] Did you review nursing and triage notes (agree or disagree)? Why? @ -[I reviewed and agree with nursing and triage notes] Were old charts reviewed (outside hosp., previous admission, EMS record, old EKG, old radiological studies, urgent care reports/EKG's, [facility] records)? Report findings @ -[No old charts were reviewed] Differential Diagnosis (chest pain, altered mental status, abdominal pain women, abdominal pain men, vaginal bleeding, weakness, fever, dyspnea, syncope, headache, dizziness, GI bleed, back pain, seizure, CVA, palpatations, mental health, musculoskeletal)? @ -Differential Fever: Pneumonia, viral URI, endocarditis, myocarditis, pericarditis, otitis, sinusitis, peritonsillar Abscess, retropharyngeal Abscess, epiglottitis, peritonitis, appendicitis, Ruby cystitis, diverticulitis, hepatitis, colitis, UTI, PID, TOA, pyelonephritis, prostatitis, epididymitis, meningitis, encephalitis, pulmonary embolism, CVA, thyroid storm, pancreatitis, adrenal crisis, cavernous sinus thrombosis, this is not meant to be an all-inclusive list. EKG interpreted by me (3pts min.). @ -[As above] X-rays interpreted by me (1pt min.). @ -[None done] CT interpreted by me (1pt min.). @ -CT of the knee was interpreted by myself shows an abscess to the medial aspect of the knee that measures 3.5 x 4 cm U/S interpreted by me (1pt. min.). @ -[None done] What testing was considered but not performed or refused? (CT, X-rays, U/S, labs)? Why? @ -[None] What meds were considered but not given or refused? Why? @ -[None] Did you discuss the management of the patient with other professionals (professionals i.e. , PA, SALVAGE DETERMINER, lab, RT, psych nurse, professor of social work, general manager farm, teacher, correctional officer captain, window caser)? Give summary @ -I spoke with some physicians agreed to admit the patient admitted the patient wrote admitting orders. Was smoking cessation discussed for >3mins.? @ -[No] Was critical care preformed (if so, how long)? @ -[No] Were there social determinants of health that impacted care today? How? (Devin elessness, low income, unemployed, alcoholism, drug addiction, transportation, low edu. Level, literacy, decrease access to med. care, skilled nursing, rehab)? @ -[No] Was there de-escalation of care discussed even if they declined (Discuss DNR or withdrawal of care, Hospice)? DNR status @ -[No] What co-morbidities impacted this encounter? (DM, HTN, Smoking, COPD, CAD, Cancer, CVA, ARF, Chemo, Hep., AIDS, mental health diagnosis, sleep apnea, morbid obesity)? @ -[None] Was patient admitted / discharged? Hospital course, mention meds given and route, prescriptions, significant lab abnormalities, going to OR and other pertinent info. @ -An abscess to the medial aspect of the left knee patient was given vancomycin and Levaquin I spoke with some physicians agreed to admit the patient admitted the patient wrote admitting orders Undiagnosed new problem with uncertain prognosis? @ -[No] Drug Therapy requiring intensive monitoring for toxicity (Heparin, Nitro, Insulin, Cardizem)? @ -[No] Were any procedures done? @ -[No] Diagnosis/symptom? @ -Leg abscess with cellulitis Acute, or Chronic, or Acute on Chronic? @ -Acute Uncomplicated (without systemic symptoms) or Complicated (systemic symptoms)? @ -Complicated Side effects of treatment? @ -[No] Exacerbation, Progression, or Severe Exacerbation? @ -[No] Poses a threat to life or bodily function? How? (Chest pain, [place], [place], pneumonia, PE, COPD, DKA, ARF, appy, cholecystitis, CVA, Diverticulitis, Homicidal, Suicidal, threat to staff... and all critical care pts) @ -Systole to sepsis which lead to end organ dysfunction - Lab Data Result diagrams: 12/11/22 20:00 Lab Results 12/11/22 Range/Units 20:00 WBC 19.1 H (3.8-10.6) k/uL RBC 5.26 (4.30-5.90) m/uL Hgb 15.2 (13.0-17.5) gm/dL Hct 46.0 (39.0-53.0) % MCV 87.4 (80.0-100.0) fL MCH 28.9 (25.0-35.0) pg MCHC 33.1 (31.0-37.0) g/dL RDW 14.7 (11.5-15.5) % Plt Count 186 (150-450) k/uL MPV 7.5 Neutrophils % 84 % Lymphocytes % 7 % Monocytes % 7 % Eosinophils % 1 % Basophils % 0 % Neutrophils # 15.9 H (1.3-7.7) k/uL Lymphocytes # 1.3 (1.0-4.8) k/uL Monocytes # 1.3 H (0-1.0) k/uL Eosinophils # 0.1 (0-0.7) k/uL Basophils # 0.0 (0-0.2) k/uL Disposition Clinical Impression: Cellulitis and abscess of leg Disposition: ADMITTED IP TO THIS HOSP Referrals: [facility],Clinic [Primary Care Provider] - 1-2 days Time of Disposition: 21:00
[2022-12-11] MEDS: SODIUM CHLORIDE 0.9% 500 ML 500 ML IV SCH ×2 (20:11→21:19)
[2022-12-11 20:30] LABS: Basophils % (A) 0 %; Eosinophils # (A) 0.1 k/uL (0-0.7); Eosinophils % (A) 1 %; HGB 15.2 gm/dL (13.0-17.5); Lymphocytes # (A) 1.3 k/uL (1.0-4.8); Lymphocytes % (A) 7 %; MCH 28.9 pg (25.0-35.0); MCHC 33.1 g/dL (31.0-37.0); MCV 87.4 fL (80.0-100.0); Mean Platelet Volume 7.5; Monocytes # (A) 1.3 k/uL (0-1.0); Monocytes % (A) 7 %; Neutrophils # (A) 15.9 k/uL (1.3-7.7); Neutrophils % (A) 84 %; Platelet Count 186 k/uL (150-450); RBC 5.26 m/uL (4.30-5.90); RDW 14.7 % (11.5-15.5); WBC 19.1 k/uL (3.8-10.6)
[2022-12-11] MEDS ORDERED: VANCOMYCIN 2,000 MG in SODIUM CHLORIDE 0.9% 500 ML 500 ML IVPB ONE (20:30)
[2022-12-11 20:49] LABS: Calcium 8.5 mg/dL (8.4-10.2); Total Bilirubin 1.1 mg/dL (0.2-1.3)
[2022-12-11] MEDS ORDERED: SODIUM CHLORIDE 0.9% 1,000 ML IV ONE (21:01)
--- NOTE | 2022-12-11 21:06 | CT ---
EXAMINATION TYPE: CT knee LT wo con CT DLP: 298.7 mGycm, Automated exposure control for dose reduction was used. DATE OF EXAM: 12/11/2022 8:50 PM COMPARISON: None CLINICAL INDICATION:Male, 62 years old with history of Abscess, Left knee redness and swelling on med ial side. poss abscess TECHNIQUE: Axial images were obtained of the left knee . Additional coronal and sagittal reformatted images and soft tissue and bone window were obtained for review. 3-D reconstruction was created on a separate workstation. Contrast used: None Oral contrast used: None FINDINGS: There is diffuse subcutaneous edema throughout the lower extremity. Focal fluid collection measuring 4.3 x 3.6 x 7.5 cm is present. This is approximately 7 mm from the skin surface. There is n o evidence of fracture, subluxation, or dislocation. No focal muscular atrophy or edema is identified . No radiopaque foreign body identified. Atherosclerosis of the arterial vasculature. A fabella is pr esent. IMPRESSION: Right medial thigh fluid collection likely representing abscess in the abscess clinical infection. Di ffuse lower extremity edema could be secondary to this finding.
[2022-12-11 21:10] LABS: Albumin 3.8 g/dL (3.5-5.0); Potassium 4.6 mmol/L (3.5-5.1); Total Protein 7.4 g/dL (6.3-8.2)
[2022-12-11 23:32] LABS: Partial Thromboplastin Time 24.2 sec (22.0-30.0); Prothrombin Time 10.7 sec (9.0-12.0)
[2022-12-12] MEDS ORDERED: ACETAMINOPHEN TAB 325 MG TAB PO PRN (04:02)
--- NOTE | 2022-12-12 04:14 | P.HPIM ---
History of Present Illness H&P Date: 12/11/22 Chief Complaint: left thigh swelling 62 year old male with hypertension , obesity patient coming in with one week of progressive swelling of the medial aspect of the left thigh .he noticed its around or over the previous surgical wound for harvesting veins for his CABG surgery February 2022. he denies any fever, chills, nausea , vomiting , . he denies any known trauma to the area. he never had any thing like this before. he has not tried any thing at home, he did not see his PCP for it. it has been getting worse over the past week and decided to come in for evaluation . he reports no drainage from this swelling, but its tender, erythematus and hot he admits to smoking, denies illicit drugs or alcohol Review of Systems Pertinent positives as noted in HPI. All other systems were reviewed and are negative Past Medical History Past Medical History: Hypertension Additional Past Medical History / Comment(s): kidney stones History of Any Multi-Drug Resistant Organisms: None Reported Additional Past Surgical History / Comment(s): colonoscopy Past Anesthesia/Blood Transfusion Reactions: No Reported Reaction Past Psychological History: No Psychological Hx Reported Smoking Status: Never smoker Past Alcohol Use History: None Reported Past Drug Use History: None Reported Medications and Allergies Home Medications Medication Instructions Recorded Confirmed Type Atorvastatin [Lipitor] 80 mg PO HS 09/03/21 12/11/22 History Cholecalciferol [Vitamin D3 (25 50 mcg PO DAILY 09/03/21 12/11/22 History Mcg = 1000 Iu)] Cyclobenzaprine [Flexeril] 10 mg PO BID PRN 09/03/21 12/11/22 History Furosemide [Lasix] 40 mg PO DAILY 09/03/21 12/11/22 History Potassium Chloride ER [K-Dur 10] 10 meq PO DAILY 09/03/21 12/11/22 History metFORMIN HCL ER [Glucophage XR] 500 mg PO BID 09/03/21 12/11/22 History Aspirin EC [Ecotrin Low Dose] 81 mg PO DAILY 12/11/22 12/11/22 History Empagliflozin [Jardiance] 12.5 mg PO DAILY 12/11/22 12/11/22 History Gabapentin [Neurontin] 200 mg PO TID 12/11/22 12/11/22 History Metoprolol Succinate (ER) [Toprol 100 mg PO DAILY 12/11/22 12/11/22 History Xl] lisinopriL [Zestril] 2.5 mg PO HS 12/11/22 12/11/22 History Allergies Allergy/AdvReac Type Severity Reaction Status Date / Time iodine Allergy Rash/Hives Verified 12/11/22 21:22 Physical Exam Vitals: Vital Signs Temp Pulse Resp BP Pulse Ox 12/11/22 21:00 99.9 F H 79 16 116/65 95 12/11/22 19:30 101.7 F H 108 H 18 141/82 98 Intake and Output 12/11/22 12/11/22 12/12/22 14:59 22:59 06:59 Other: Weight 136.078 kg Constitutional: No acute distress, conversant, pleasant Eyes: Anicteric sclerae, moist conjunctiva, Pupils equal round reactive to light ENMT: NC/AT Oropharynx clear, no erythema, or exudates Neck: Supple, no masses, or JVD No carotid bruits No thyromegaly Lungs: Clear to auscultation Clear to percussion Normal respiratory effort, no accessory muscle use Cardiovascular: Heart regular in rate and rhythm, No murmurs, gallops, or rubs No peripheral edema Abdominal: Soft Nontender, no guarding, rebound or rigidity Abdomen moving with respiration Normoactive bowel sounds No hepatomegaly, No splenomegaly No palpable mass No abdominal wall hernia noted Skin: driness and chronic skin changes over bilateral legs , otherwise, Normal temperature, tone, texture, turgor Extremities: No digital cyanosis No clubbing Pedal pulses intact and symmetrical Radial pulses intact and symmetrical No calf tenderness Psychiatric: Alert and oriented to person, place and time Appropriate affect Neuro Muscles Strength 5/5 in all 4 extremities Sensation to light touch grossly present throughout Cranial nerves II-XII grossly intact Lymphatics: no palpable cervical or supraclavicular lymph nodes Results CBC & Chem 7: 12/11/22 20:00 12/11/22 20:00 Labs: Abnormal Lab Results - Last 24 Hours (Table) 12/11/22 12/11/22 Range/Units 20:00 20:00 WBC 19.1 H (3.8-10.6) k/uL Neutrophils # 15.9 H (1.3-7.7) k/uL Monocytes # 1.3 H (0-1.0) k/uL Sodium 132 L (137-145) mmol/L Glucose 127 H (74-99) mg/dL Assessment and Plan Assessment: 62 year old male with hypertension , coming in for swollen lump ove rhte medial aspect of the left thigh . I discussed the case with ED doc, and I accepted the admission for sepsis secondary to thigh abscess. with anticipated length of stay > 2 midnights sepsis 2/2 left thigh abscess (fever 101, HR108) leukocytosis 19 pain control with opiates follow up cultures started on and vanco in the ED monitor vanco level IVF hydration with normal saline phototypesetting equipment monitor hypertension , controlle d resume metoprolol full code DVT PPX with lovenox 40 mg daily sc
[2022-12-12] MEDS: CLINDAMYCIN 600 MG in DEXTROSE 5% IN WATER 50 ML IVPB SCH ×6 (05:34→20:22)
[2022-12-12 06:46] LABS: Glucose,Whole Blood 112 mg/dL (70-110)
[2022-12-12] MEDS: ASPIRIN 81 MG PO SCH (09:01)
[2022-12-12] MEDS: ENOXAPARIN 40 MG/0.4 ML SYRINGE SQ SCH (09:01)
[2022-12-12] MEDS: GABAPENTIN 100 MG CAP PO SCH ×3 (09:02→20:22)
[2022-12-12] MEDS: METOPROLOL SUCCINATE (ER) 100 MG TAB.ER.24H PO SCH (09:04)
[2022-12-12] MEDS: VANCOMYCIN 2,000 MG in SODIUM CHLORIDE 0.9% 500 ML 500 ML IVPB SCH ×2 (09:41→21:07)
[2022-12-12] MEDS ORDERED: ONDANSETRON 4 MG/2 ML VIAL ONE (10:39)
[2022-12-12] MEDS ORDERED: IV FLUID CONTINUATION 1,000 ML IV ONE (10:40)
[2022-12-12 10:51] LABS: Glucose,Whole Blood 110 mg/dL (70-110)
[2022-12-12] MEDS ORDERED: ONDANSETRON 4 MG/2 ML VIAL IVP ONE (10:51)
[2022-12-12] MEDS ORDERED: DEXAMETHASONE SOD PHOSPHATE 4 MG/ML 1 ML VIAL IVP ONE (10:51)
[2022-12-12] MEDS ORDERED: PROPOFOL 10 MG/ML 20 ML VIAL IV ONE (11:03)
[2022-12-12] MEDS ORDERED: LIDOCAINE 2% INJ 20 MG/ML (2 ML VIAL) ONE (11:03)
[2022-12-12] MEDS ORDERED: SUCCINYLCHOLINE CHLORIDE 200 MG/10 ML VIAL IV ONE (11:03)
[2022-12-12] MEDS ORDERED: MIDAZOLAM 2 MG/2 ML VIAL ONE (11:03)
[2022-12-12] MEDS ORDERED: fentaNYL (PF) 50 MCG/ML 2 ML AMP ONE (11:03)
--- NOTE | 2022-12-12 11:03 | P.GSCN ---
History of Present Illness Consult date: 12/12/22 History of present illness: Patient presents with left upper medial leg swelling with redness. Presents with cellulitis and sepsis. His previous history of CABG February 2022. There is tender to touch. CT review demonstrates 7 cm fluid collection consistent with abscess. No association with knee joint. Recommend urgent incision and drainage of large medial proximal leg abscess. He is elevated risk. Benefits and risks reviewed. Past Medical History Past Medical History: Hypertension Additional Past Medical History / Comment(s): kidney stones History of Any Multi-Drug Resistant Organisms: None Reported Additional Past Surgical History / Comment(s): colonoscopy Past Anesthesia/Blood Transfusion Reactions: No Reported Reaction Past Psychological History: No Psychological Hx Reported Smoking Status: Never smoker Past Alcohol Use History: None Reported Past Drug Use History: None Reported Medications and Allergies Home Medications Medication Instructions Recorded Confirmed Type Atorvastatin [Lipitor] 80 mg PO HS 09/03/21 12/11/22 History Cholecalciferol [Vitamin D3 (25 50 mcg PO DAILY 09/03/21 12/11/22 History Mcg = 1000 Iu)] Cyclobenzaprine [Flexeril] 10 mg PO BID PRN 09/03/21 12/11/22 History Furosemide [Lasix] 40 mg PO DAILY 09/03/21 12/11/22 History Potassium Chloride ER [K-Dur 10] 10 meq PO DAILY 09/03/21 12/11/22 History metFORMIN HCL ER [Glucophage XR] 500 mg PO BID 09/03/21 12/11/22 History Aspirin EC [Ecotrin Low Dose] 81 mg PO DAILY 12/11/22 12/11/22 History Empagliflozin [Jardiance] 12.5 mg PO DAILY 12/11/22 12/11/22 History Gabapentin [Neurontin] 200 mg PO TID 12/11/22 12/11/22 History Metoprolol Succinate (ER) [Toprol 100 mg PO DAILY 12/11/22 12/11/22 History Xl] lisinopriL [Zestril] 2.5 mg PO HS 12/11/22 12/11/22 History Allergies Allergy/AdvReac Type Severity Reaction Status Date / Time iodine Allergy Rash/Hives Verified 12/11/22 21:22 Surgical - Exam Vital Signs Temp Pulse Resp BP Pulse Ox 101.7 F H 108 H 18 141/82 98 12/11/22 19:30 12/11/22 19:30 12/11/22 19:30 12/11/22 19:30 12/11/22 19:30 Results - Labs 12/11/22 20:00 12/11/22 20:00 Abnormal Lab Results - Last 24 Hours (Table) 12/11/22 12/11/22 12/12/22 Range/Units 20:00 20:00 06:44 WBC 19.1 H (3.8-10.6) k/uL Neutrophils # 15.9 H (1.3-7.7) k/uL Monocytes # 1.3 H (0-1.0) k/uL Sodium 132 L (137-145) mmol/L Glucose 127 H (74-99) mg/dL POC Glucose (mg/dL) 112 H (70-110) mg/dL Diabetes panel 12/11/22 Range/Units 20:00 Sodium 132 L (137-145) mmol/L Potassium 4.6 (3.5-5.1) mmol/L Chloride 99 (98-107) mmol/L Carbon Dioxide 22 (22-30) mmol/L BUN 19 (9-20) mg/dL Creatinine 1.05 (0.66-1.25) mg/dL Glucose 127 H (74-99) mg/dL Calcium 8.5 (8.4-10.2) mg/dL AST 29 (17-59) U/L ALT 21 (4-49) U/L Alkaline Phosphatase 79 (38-126) U/L Total Protein 7.4 (6.3-8.2) g/dL Albumin 3.8 (3.5-5.0) g/dL Calcium panel 12/11/22 Range/Units 20:00 Calcium 8.5 (8.4-10.2) mg/dL Albumin 3.8 (3.5-5.0) g/dL Pituitary panel 12/11/22 Range/Units 20:00 Sodium 132 L (137-145) mmol/L Potassium 4.6 (3.5-5.1) mmol/L Chloride 99 (98-107) mmol/L Carbon Dioxide 22 (22-30) mmol/L BUN 19 (9-20) mg/dL Creatinine 1.05 (0.66-1.25) mg/dL Glucose 127 H (74-99) mg/dL Calcium 8.5 (8.4-10.2) mg/dL Adrenal panel 12/11/22 Range/Units 20:00 Sodium 132 L (137-145) mmol/L Potassium 4.6 (3.5-5.1) mmol/L Chloride 99 (98-107) mmol/L Carbon Dioxide 22 (22-30) mmol/L BUN 19 (9-20) mg/dL Creatinine 1.05 (0.66-1.25) mg/dL Glucose 127 H (74-99) mg/dL Calcium 8.5 (8.4-10.2) mg/dL Total Bilirubin 1.1 (0.2-1.3) mg/dL AST 29 (17-59) U/L ALT 21 (4-49) U/L Alkaline Phosphatase 79 (38-126) U/L Total Protein 7.4 (6.3-8.2) g/dL Albumin 3.8 (3.5-5.0) g/dL
[2022-12-12] MEDS ORDERED: LACTATED RINGERS 1,000 ML IV ONE (11:08)
[2022-12-12] MEDS ORDERED: LIDOCAINE 0.5%-EPI 1:200,000 50 ML VIAL SQ ONE ×3 (11:24→11:31)
--- NOTE | 2022-12-12 12:40 | P.OP ---
Date of Procedure: 12/12/22 Description of Procedure: SURGEON: CHRIS CAM MD SLURRY MIXER: NONE. PREOPERATIVE DIAGNOSES: 1. Cellulitis with abscess left medial proximal leg, 7 cm 2. Sepsis 3. Morbid obesity due to excess calories, BMI 41.8 4. Status post CABG with left vein graft. POSTOPERATIVE DIAGNOSES: 1. Cellulitis with abscess left medial proximal leg, 7 cm 2. Sepsis 3. Morbid obesity due to excess calories, BMI 41.8 4. Status post CABG with left vein graft. OPERATION: 1. Incision and drainage of complicated subfascial left lower leg anterior compartment 7 x 6 cm abscess with cellulitis. 2. Mechanical debridement with 1 L normal saline waterjet lavage of left upper leg subfascial medial compartment ANESTHESIA: Gen. with local ESTIMATED BLOOD LOSS: 5 mL. SPECIMENS REMOVED: Aerobic, anaerobic culture right lower leg anterior compartment COMPLICATIONS: None. FINDINGS: 1. Left upper leg anterior medial compartment, subfascial abscesses drained, 30-mL clear non-malodorous drainage 2. Eusebia drain, quarter inch placed with compressive dressing using Ayo wrap 6 inches INDICATIONS: The patient is a 62-year-old male with one-week history of complicated left lower leg cellulitis. Despite outpatient antibiotics, symptoms were worse. He developed complicated abscess formed confirmed b computed tomography scan. Urgent incision and drainage described for surgical management. Benefits and risks including recurrence and additional surgery if needed. Informed consent was obtained. DESCRIPTION: Patient was brought into the operating room, laid in supine position. After general induction, the right leg was prepped and draped in standard sterile fashion using Betadine. Prior to incision a timeout protocol was confirmed with surgical team regarding patient's name including procedures being performed. Preoperative antibiotic, With scheduled vancomycin was already administered. The skin was localized with local anesthetic. The measured affected area 7 x 6 cm along the lower aspect of anterior medial compartment of the right lower leg was confirmed. A longitudinal 3 cm incision over the area of fluctuance was performed. The wound was probed using a hemostat. Fili purulent drainage was evacuated of at least 10 mL. Aerobic, anaerobic cultures were obtained. Loculations were disrupted. All purulent material was massaged and egressed through the incision. Hemostasis was excellent. Using 1 L normal saline waterjet pulsed lavage, the wound was copiously irrigated. Hemostasis was checked again. Necrotic skin was debrided mechanically using 4 x 4. The skin was cleansed with hydrogen peroxide. The wound was packed using 1/4-inch iodoform followed by 4 x 4 and 4- inch Coban was placed around the leg after cleansing the skin. At the end of the procedure, the needle and sponge counts were verified correct by the certified surgical first assistant. The patient tolerated the procedure well and was taken to postanesthesia care unit in stable condition.
[2022-12-12] MEDS ORDERED: DEXTROSE 50% SYRINGE 50 ML IVP PRN ×2 (13:04)
--- NOTE | 2022-12-12 13:06 | P.DS ---
Providers Date of admission: 12/11/22 21:01 Expected date of discharge: 12/12/22 Attending physician: Milton Newman MD Consults: 12/11/22 21:01 Consult Physician Urgent Consulting Provider: Emily Vanegas Consult Reason/Comments: abscess leg Do you want consulting provider notified?: Yes Primary care physician: [facility] Hospital Course: Hospital Course: 62-year-old male with history of hypertension, diabetes, dyslipidemia, CAD status post CABG, and obesity presenting with worsening left thigh pain. In the ED, temperature was 101.7, pulse 108, respiratory rate 18 blood pressure 141/80, saturating at 98% on room air. WBC 19.1, creatinine 1.05, lactate 0.9. CT showed right medial thigh fluid collection consistent with abscess. Patient was admitted for sepsis secondary to thigh abscess, surgery was consulted. Subjective: Patient seen and examined at bedside. No acute events overnight. Continues to have left thigh pain. Denies any chest pain, shortness of breath, urinary or bowel complaints. Pertinent positives and negatives as discussed above, a complete review of systems was performed and all other systems are negative. Vitals Signs Reviewed. General: nontoxic, no distress, appears at stated age, morbidly obese Derm: warm, dry left thigh abscess no drainage Head: atraumatic, normocephalic, symmetric Eyes: EOMI, no lid lag, anicteric sclera Mouth: no lip lesion, mucus membranes moist Cardiovascular: S1S2 reg, no murmur Lungs: CTA bilateral, no rhonchi, no rales , no accessory muscle use Abdominal: soft, nontender to palpation, no guarding, no appreciable organomegaly Ext: no gross muscle atrophy, bilateral lower extremity edema, no contractures Neuro: CN II-XI grossly intact, no focal neuro deficits Psych: Alert, oriented, appropriate affect Data Reviewed Today: Pertinent Labs: Blood sugars this morning was 110 Imaging: No new today Assessment and Plan: Active: Sepsis secondary to left thigh abscess Diabetes mellitus -Blood cultures pending -Continue vancomycin, monitor for renal toxicity -Continue clindamycin 600 mg IV every 8 hours -Operative note reviewed, 30 mL of non-malodorous drainage, drain in place -Repeat CBC and BMP tomorrow -IV Dilaudid as needed for pain, oral Tylenol as needed for pain -Hold home medications, started on sliding scale insulin Resolved: Chronic: Hypertension Diabetes Dyslipidemia Lower extremity edema CAD status post CABG Dyslipidemia DVT ppx: Lovenox Code status: Full code Anticipated discharge place: Likely home Anticipated discharge time: 1- 2 days Plan - Discharge Summary Discharge Rx Participant: Yes New Discharge Prescriptions: No Action Atorvastatin [Lipitor] 80 mg PO HS Furosemide [Lasix] 40 mg PO DAILY Gabapentin [Neurontin] 200 mg PO TID lisinopriL [Zestril] 2.5 mg PO HS Aspirin EC [Ecotrin Low Dose] 81 mg PO DAILY Cyclobenzaprine [Flexeril] 10 mg PO BID PRN PRN Reason: Muscle Spasm Potassium Chloride ER [K-Dur 10] 10 meq PO DAILY Cholecalciferol [Vitamin D3 (25 Mcg = 1000 Iu)] 50 mcg PO DAILY metFORMIN HCL ER [Glucophage XR] 500 mg PO BID Metoprolol Succinate (ER) [Toprol Xl] 100 mg PO DAILY Empagliflozin [Jardiance] 12.5 mg PO DAILY Discharge Medication List Atorvastatin [Lipitor] 80 mg PO HS 09/03/21 [History] Cholecalciferol [Vitamin D3 (25 Mcg = 1000 Iu)] 50 mcg PO DAILY 09/03/21 [History] Cyclobenzaprine [Flexeril] 10 mg PO BID PRN 09/03/21 [History] Furosemide [Lasix] 40 mg PO DAILY 09/03/21 [History] Potassium Chloride ER [K-Dur 10] 10 meq PO DAILY 09/03/21 [History] metFORMIN HCL ER [Glucophage XR] 500 mg PO BID 09/03/21 [History] Aspirin EC [Ecotrin Low Dose] 81 mg PO DAILY 12/11/22 [History] Empagliflozin [Jardiance] 12.5 mg PO DAILY 12/11/22 [History] Gabapentin [Neurontin] 200 mg PO TID 12/11/22 [History] Metoprolol Succinate (ER) [Toprol Xl] 100 mg PO DAILY 12/11/22 [History] lisinopriL [Zestril] 2.5 mg PO HS 12/11/22 [History] Follow up Appointment(s)/Referral(s): [facility],Clinic [Primary Care Provider] - 1-2 days
[2022-12-12 16:15] LABS: Glucose,Whole Blood 264 mg/dL (70-110)
[2022-12-12] MEDS: HYDROmorphone 1 MG/ML 1 ML SYRINGE IVP PRN ×2 (16:24→21:06)
[2022-12-12] MEDS: INSULIN ASPART (NovoLOG) 100 UNIT/ML VIAL SQ SCH ×2 (16:26→21:07)
[2022-12-12 20:42] LABS: Glucose,Whole Blood 178 mg/dL (70-110)
[2022-12-12] MEDS ORDERED: ATORVASTATIN 80 MG TAB PO SCH (21:00)
[2022-12-13] MEDS: CLINDAMYCIN 600 MG in DEXTROSE 5% IN WATER 50 ML IVPB SCH ×2 (05:06)
[2022-12-13 06:08] LABS: Glucose,Whole Blood 185 mg/dL (70-110)
[2022-12-13] MEDS: INSULIN ASPART (NovoLOG) 100 UNIT/ML VIAL SQ SCH (06:23)
[2022-12-13 07:48] VITALS: BP 125/69; PULSE 69; RESP 14; TEMP 97.6
[2022-12-13] MEDS: GABAPENTIN 100 MG CAP PO SCH (08:17)
[2022-12-13] MEDS: ENOXAPARIN 40 MG/0.4 ML SYRINGE SQ SCH (08:17)
[2022-12-13] MEDS: METOPROLOL SUCCINATE (ER) 100 MG TAB.ER.24H PO SCH (08:17)
[2022-12-13] MEDS: ASPIRIN 81 MG PO SCH (08:17)
[2022-12-13 08:34] LABS: African American GFR (CKD) >90 (>60 ml/min/1.73 sqM); Anion Gap 11 mmol/L; Blood Urea Nitrogen 16 mg/dL (9-20); Calcium 8.3 mg/dL (8.4-10.2); Carbon Dioxide 19 mmol/L (22-30); Chloride 104 mmol/L (98-107); Glucose 167 mg/dL (74-99); Non-African American GFR(CKD) >90 (>60 ml/min/1.73 sqM); Sodium 134 mmol/L (137-145)
[2022-12-13 08:35] LABS: Potassium 4.4 mmol/L (3.5-5.1)
[2022-12-13] MEDS ORDERED: POTASSIUM CHLORIDE ER 10 MEQ TAB.ER.PRT PO SCH (09:00)
[2022-12-13] MEDS ORDERED: FUROSEMIDE 40 MG TAB PO SCH (09:00)
[2022-12-13] MEDS: VANCOMYCIN 2,000 MG in SODIUM CHLORIDE 0.9% 500 ML 500 ML IVPB SCH (10:35)
[2022-12-13 11:07] LABS: HCT 44.6 % (39.6-50.0); HGB 13.9 g/dL (13.0-17.0); MCHC 31.2 g/dL (32.0-37.0); MCV 89.9 fL (80.0-97.0); Mean Platelet Volume 10.6 fL (9.5-12.2); NRBC Per 100 WBC 0 /100 WBCS (0.0-0.0); Platelet Count 188 X 10*3/uL (140-440); RBC 4.96 X 10*6/uL (4.40-5.60); RDW 15.2 % (11.5-14.5); WBC 18.13 X 10*3/uL (4.50-10.00)
[2022-12-13 12:09] LABS: Glucose,Whole Blood 115 mg/dL (70-110)
--- NOTE | 2022-12-13 12:15 | P.DS ---
Providers Date of admission: 12/11/22 21:01 Expected date of discharge: 12/13/22 Attending physician: Milton Newman MD Consults: 12/11/22 21:01 Consult Physician Urgent Consulting Provider: Emily Vanegas Consult Reason/Comments: abscess leg Do you want consulting provider notified?: Yes Primary care physician: [facility] Hospital Course: Discharge Diagnosis: Sepsis secondary to left thigh abscess Diabetes mellitus Hypertension Diabetes Dyslipidemia Lower extremity edema CAD status post CABG Dyslipidemia Hospital Course: 62-year-old male with history of hypertension, diabetes, dyslipidemia, CAD status post CABG, and obesity presenting with worsening left thigh pain. In the ED, temperature was 101.7, pulse 108, respiratory rate 18 blood pressure 141/80, saturating at 98% on room air. WBC 19.1, creatinine 1.05, lactate 0.9. CT showed right medial thigh fluid collection consistent with abscess. Patient was admitted for sepsis secondary to thigh abscess, surgery was consulted. Patient underwent I&D. Clinically improving. Patient to be discharged on oral doxycycline for 14 days. Had purulent discharge noted in the OR. Likely gram-positive, possibly MRSA. He should be covered by doxycycline. He will follow-up with surgery as an outpatient. Patient seen and examined at bedside. Vital signs reviewed and stable. General: nontoxic, no distress, appears at stated age, morbidly obese Derm: warm, dry left thigh abscess no drainage Head: atraumatic, normocephalic, symmetric Eyes: EOMI, no lid lag, anicteric sclera Mouth: no lip lesion, mucus membranes moist Cardiovascular: S1S2 reg, no murmur Lungs: CTA bilateral, no rhonchi, no rales , no accessory muscle use Abdominal: soft, nontender to palpation, no guarding, no appreciable organomegaly Ext: no gross muscle atrophy, bilateral lower extremity edema, no contractures Neuro: CN II-XI grossly intact, no focal neuro deficits Psych: Alert, oriented, appropriate affect A total of 32 minutes of time were spent preparing this complex discharge summary. Patient was discharged on 12/13/22 at 12:10. Patient Condition at Discharge: Stable Plan - Discharge Summary Discharge Rx Participant: Yes New Discharge Prescriptions: New Doxycycline [Vibramycin] 100 mg PO BID 14 Days #28 capsule Continue Atorvastatin [Lipitor] 80 mg PO HS Furosemide [Lasix] 40 mg PO DAILY Gabapentin [Neurontin] 200 mg PO TID lisinopriL [Zestril] 2.5 mg PO HS Aspirin EC [Ecotrin Low Dose] 81 mg PO DAILY Cyclobenzaprine [Flexeril] 10 mg PO BID PRN PRN Reason: Muscle Spasm Potassium Chloride ER [K-Dur 10] 10 meq PO DAILY Cholecalciferol [Vitamin D3 (25 Mcg = 1000 Iu)] 50 mcg PO DAILY metFORMIN HCL ER [Glucophage XR] 500 mg PO BID Metoprolol Succinate (ER) [Toprol XL] 100 mg PO DAILY Empagliflozin [Jardiance] 12.5 mg PO DAILY Discharge Medication List Atorvastatin [Lipitor] 80 mg PO HS 09/03/21 [History] Cholecalciferol [Vitamin D3 (25 Mcg = 1000 Iu)] 50 mcg PO DAILY 09/03/21 [History] Cyclobenzaprine [Flexeril] 10 mg PO BID PRN 09/03/21 [History] Furosemide [Lasix] 40 mg PO DAILY 09/03/21 [History] Potassium Chloride ER [K-Dur 10] 10 meq PO DAILY 09/03/21 [History] metFORMIN HCL ER [Glucophage XR] 500 mg PO BID 09/03/21 [History] Aspirin EC [Ecotrin Low Dose] 81 mg PO DAILY 12/11/22 [History] Empagliflozin [Jardiance] 12.5 mg PO DAILY 12/11/22 [History] Gabapentin [Neurontin] 200 mg PO TID 12/11/22 [History] Metoprolol Succinate (ER) [Toprol XL] 100 mg PO DAILY 12/11/22 [History] lisinopriL [Zestril] 2.5 mg PO HS 12/11/22 [History] Doxycycline [Vibramycin] 100 mg PO BID 14 Days #28 capsule 12/13/22 [Rx] Follow up Appointment(s)/Referral(s): Emily Vanegas MD [STAFF PHYSICIAN] - 1 Week [facility] [Primary Care Provider] - 1-2 days Patient Instructions/Handouts: Abscess (GEN) Activity/Diet/Wound Care/Special Instructions: Please see surgery. Discharge Disposition: HOME SELF-CARE
[2022-12-13 13:10] LABS: Basophils # (A) 0.05 X 10*3/uL (0.00-0.10); Basophils % (A) 0.3 %; Eosinophils % (A) 0.6 %; Immature Grans, Automated 0.6 %; Lymphocytes # (A) 1.98 X 10*3/uL (0.90-5.00); Lymphocytes % (A) 10.9 %; Monocytes # (A) 1.56 X 10*3/uL (0.20-1.00); Monocytes % (A) 8.6 %; Neutrophils # (A) 14.33 X 10*3/uL (1.80-7.70)
[2022-12-13 13:11] LABS: RBC Morphology NORMAL
[2022-12-14] MEDS ORDERED: VANCOMYCIN TROUGH DUE 1 EACH MISC MISCELLANE ONE (09:00)
== END 2022-12-13 13:34 | disposition home or self-care (01) | DRG 579 ==
LOC: EC 19:06 → 4SSUR 21:01
PROVIDERS: ADMIT Internal Medicine; ATTEND Internal Medicine
PROC: 0JD90ZZ Extraction of Buttock Subcutaneous Tissue and Fascia, Open Approach (ICD-10-PCS; principal; 2022-12-11)
DX: L02.416 Cutaneous abscess of left lower limb (principal); A41.02 Sepsis due to Methicillin resistant Staphylococcus aureus; Z68.41 Body mass index [BMI] 40.0-44.9, adult; L03.116 Cellulitis of left lower limb; E66.01 Morbid (severe) obesity due to excess calories; E78.5 Hyperlipidemia, unspecified; E78.00 Pure hypercholesterolemia, unspecified; N30.90 Cystitis, unspecified without hematuria; R60.0 Localized edema; I25.10 Atherosclerotic heart disease of native coronary artery without angina pectoris; Z79.4 Long term (current) use of insulin; Z79.84 Long term (current) use of oral hypoglycemic drugs; Z87.442 Personal history of urinary calculi; Z95.1 Presence of aortocoronary bypass graft; Z79.899 Other long term (current) drug therapy; Z91.041 Radiographic dye allergy status; Z79.82 Long term (current) use of aspirin
CPT/HCPCS: 36415; 80048; 80053; 83036; 83605; 85025; 85610; 85730; 87070; 87075; 87205; 93005; 94760; 96361; 96365; 99285